=== PATIENT | female | born 1965 | race Caucasian/White ===

== ENCOUNTER 2017-08-20 12:19 | Emergency (ER) | payer MEDICAID, OTHER ==
[2017-08-20] MEDS: TOBRAMYCIN/DEXAMETH 2.5 ML OPH RIGHT EYE (15:10)
== END 2017-08-20 17:00 | disposition home or self-care (01) ==
LOC: FTE 12:19
DX: H10.31 Unspecified acute conjunctivitis, right eye (principal)
CPT/HCPCS: 99283; Z7502